=== PATIENT | male | born 1980 | race Two or more races ===

== ENCOUNTER 2019-04-25 19:03 | Emergency (ER) | payer MEDICAID ==
[~2019-04-25] VITALS: Ht 188 cm; Wt 90.8 kg
[2019-04-25 19:07] VITALS: Ht 188 cm; Wt 90.8 kg
[2019-04-25 20:13] LABS: microscopic required? NO
[2019-04-25 20:27] LABS: BASOPHIL % 0.5 % (0-2); PLATELET COUNT 339 x10^3mcL (130-400); RED CELL DISTRIBUTION WIDTH 13.9 % (11.5-14.5)
[2019-04-25 20:37] LABS: UA SPECIFIC GRAVITY 1.015 (1.005-1.035); urine erythrocyte NEGATIVE (NEGATIVE)
[2019-04-25 20:43] LABS: CALCIUM 9.3 mg/dL (8.5-10.1); CARBON DIOXIDE 33.5 mmol/L (21-32); CHLORIDE SERUM 103 mmol/L (98-107); CREATININE SERUM 0.9 mg/dL (0.7-1.3); GFR1 > 60 mL/min; GLUCOSE SERUM 87 mg/dL (74-106); POTASSIUM SERUM 4.2 mmol/L (3.5-5.1); SODIUM SERUM 140 mmol/L (136-145)
[2019-04-25 20:54] LABS: AMPHETAMINE QUAL UR NONE DETECTED (See below)
[2019-04-25 20:55] LABS: ALBUMIN 4.2 g/dL (3.4-5.0); ALKALINE PHOSPHATASE 110 U/L (46-116); ALT/SGPT 48 U/L (16-63); AST/SGOT 21 U/L (15-37); BILIRUBIN TOTAL 0.4 mg/dL (0.20-1.00); CHOLESTEROL 201 mg/dL (<200); HDL CHOLESTEROL 75 mg/dL (40-60); LIPASE 111 IU/L (73-393); T4(THYROXINE) 7.6 ug/dL (4.7-13.3); TOTAL PROTEIN, SERUM 7.8 g/dL (6.4-8.2)
[2019-04-25 22:37] VITALS: BP 116/67
== END 2019-04-25 22:37 | disposition home or self-care (01) ==
LOC: ED 19:03
PROVIDERS: Emergency Medicine
DX: R07.89 Other chest pain (principal); I71.2 Thoracic aortic aneurysm, without rupture; Z98.890 Other specified postprocedural states
CPT/HCPCS: 36415; 83880; 85378; G0480; Q0092; Q9967